=== PATIENT | male | born 1970 | race Caucasian/White ===

== ENCOUNTER 2023-07-21 21:42 | Inpatient (IN) | payer OTHER ==
[2023-07-22] MEDS ORDERED: hydrALAZINE 20 MG/ML VIAL SLOW IVP PRN (00:44)
[2023-07-22] MEDS ORDERED: Calcium Carbonate 500 MG ChewTAB PO PRN (00:45)
[2023-07-22] MEDS ORDERED: Ondansetron ODT 4 MG TAB PO PRN (00:45)
[2023-07-22] MEDS ORDERED: Acetaminophen 325 MG TAB PO PRN (00:45)
[2023-07-22 00:53] VITALS: BMI 28.0
[2023-07-22 01:42] LABS: #Basophils 0.1 thou/uL (0.0-0.2); #Eosinphils 0.1 thou/uL (0.0-0.7); #Monocytes 0.4 thou/uL (0.11-0.59); #Neutrophils 2.2 thou/uL (1.40-6.50); %Basophils 1.2 % (0.0-1.0); %Eosinophils 3.3 % (0.0-10.0); %Lymphocytes 34.3 % (21.0-51.0); Hematocrit 37.9 % (42.0-52.0); Hemoglobin 13.1 g/dL (14.0-18.0); Mean Corpuscular HGB CONC 34.6 g/dL (32.0-36.0); Mean Corpuscular Hemoglobin 28.1 pg (27.0-31.0); Mean Corpuscular Volume 81.3 fl (78.0-98.0); Mean Platelet Volume 10.4 fL (7.4-10.4); Platelet Count 149 10x3/uL (130-400); RBC Distribution Width 13.1 % (11.5-14.5); Red Blood Cell (RBC) Count 4.66 mill/uL (4.70-6.10); White Blood Cell (WBC) Count 4.3 10x3/uL (4.8-10.8)
[2023-07-22 02:11] LABS: ALT (SGPT) 64 U/L (8-55); AST (SGOT) 45 U/L (5-34); Albumin 4.3 g/dL (3.5-5.0); Alkaline Phosphatase 52 U/L (40-110); Anion Gap 15 mmol/L (10-20); BUN (Urea Nitrogen) 21 mg/dL (8.4-25.7); Bilirubin, Total 0.6 mg/dL (0.2-1.2); Calc. Creatinine Clearance 59 mL/min (70-130); Calcium 9.2 mg/dL (7.8-10.44); Carbon Dioxide 19 mmol/L (22-29); Chloride 106 mmol/L (98-107); Estimated GFR 49; Globulin 2.7 g/dL (2.4-3.5); Glucose 87 mg/dL (70-105); Potassium 3.9 mmol/L (3.5-5.1); Sodium 136 mmol/L (136-145)
[2023-07-22 02:31] LABS: Cardiac Risk 2.9 (Less than 4.5)
[2023-07-22] MEDS: Levothyroxine Sodium 100 MCG TAB PO SCH (07:05)
[2023-07-22] MEDS: Amlodipine 10 MG TAB PO SCH (08:31)
[2023-07-22] MEDS: Rivaroxaban 10 MG TAB PO SCH (08:31)
[2023-07-22] MEDS: Famotidine 20 MG TAB PO SCH ×2 (08:31→20:42)
[2023-07-22] MEDS: Aspirin 81 mg Enteric Coated Tablet PO SCH ×2 (08:31→08:36)
[2023-07-22] MEDS: Rosuvastatin 20 MG TAB PO SCH (20:42)
[2023-07-22] MEDS ORDERED: Atorvastatin Calcium 40 MG TAB PO SCH (21:00)
[2023-07-23] MEDS: Levothyroxine Sodium 100 MCG TAB PO SCH (05:10)
[2023-07-23] MEDS: Aspirin 81 mg Enteric Coated Tablet PO SCH ×2 (09:21→09:23)
[2023-07-23] MEDS: Amlodipine 10 MG TAB PO SCH (09:21)
[2023-07-23] MEDS: Famotidine 20 MG TAB PO SCH ×2 (09:21→20:08)
[2023-07-23] MEDS: Rivaroxaban 10 MG TAB PO SCH (09:21)
[2023-07-23] MEDS: Rosuvastatin 20 MG TAB PO SCH (20:08)
[2023-07-24] MEDS: Levothyroxine Sodium 100 MCG TAB PO SCH (05:57)
[2023-07-24 07:36] VITALS: BP 127/89; TEMP 97.6
[2023-07-24] MEDS: Rivaroxaban 10 MG TAB PO SCH (08:09)
[2023-07-24] MEDS: Famotidine 20 MG TAB PO SCH (08:09)
[2023-07-24] MEDS: Amlodipine 10 MG TAB PO SCH (08:09)
[2023-07-24] MEDS: Aspirin 81 mg Enteric Coated Tablet PO SCH (08:09)
== END 2023-07-24 11:52 | disposition home or self-care (01) | DRG 69 ==
LOC: 2SW 21:42 → OBSVTOIN 07-22 14:59 → 2SE 07-23 21:36
PROVIDERS: ADMIT Student in an Organized Health Care Education/Training Program; ATTEND Hospitalist
DX: G45.9 Transient cerebral ischemic attack, unspecified (principal); D68.9 Coagulation defect, unspecified; E78.5 Hyperlipidemia, unspecified; I12.9 Hypertensive chronic kidney disease with stage 1 through stage 4 chronic kidney disease, or unspecified chronic kidney disease; N18.9 Chronic kidney disease, unspecified; Z79.82 Long term (current) use of aspirin; Z79.899 Other long term (current) drug therapy; Z98.890 Other specified postprocedural states
CPT/HCPCS: 36415; 70450; 80053; 80061; 85025; G0378

== ENCOUNTER 2023-12-14 20:30 | Inpatient (IN) | payer MEDICARE, OTHER ==
[2023-12-14] MEDS ORDERED: levETIRAcetam 500 MG (5 mL) VIAL ONE (21:13)
[2023-12-14 21:16] LABS: #Basophils 0.04 10x3/uL (0.0-0.2); %Basophils 0.5 % (0.0-1.0); %Eosinophils 1.8 % (0.0-10.0); %Lymphocytes 16.1 % (21.0-51.0); %Monocytes 6.7 % (0.0-10.0); %Neutrophils 74.6 % (42.0-75.0); Hematocrit 38.2 % (42.0-52.0); Hemoglobin 12.8 g/dL (14.0-18.0); Mean Corpuscular HGB CONC 33.5 g/dL (32.0-36.0); Mean Corpuscular Hemoglobin 27.6 pg (27.0-31.0); Mean Corpuscular Volume 82.5 fL (78.0-98.0); Mean Platelet Volume 10.2 fL (7.4-10.4); Platelet Count 187 10x3/uL (130-400); RBC Distribution Width 13.5 % (11.5-14.5); Red Blood Cell (RBC) Count 4.63 mill/uL (4.70-6.10)
[2023-12-14] MEDS ORDERED: niCARdipine 25 MG/10 ML SDV ONE ×2 (21:23→23:09)
[2023-12-14 21:30] LABS: INR-International Normal Ratio 1.2; PTT 33.4 sec (22.9-36.1); Prothrombin Time 15.1 sec (12.0-14.7)
[2023-12-14 21:44] LABS: ALT (SGPT) 20 U/L (8-55); AST (SGOT) 28 U/L (5-34); Albumin 4.7 g/dL (3.5-5.0); Alkaline Phosphatase 55 U/L (40-110); Anion Gap 15 mmol/L (10-20); BUN (Urea Nitrogen) 25 mg/dL (8.4-25.7); Bilirubin, Total 0.6 mg/dL (0.2-1.2); Calc. Creatinine Clearance 0 mL/min (70-130); Calcium 9.4 mg/dL (7.8-10.44); Carbon Dioxide 20 mmol/L (22-29); Chloride 107 mmol/L (98-107); Estimated GFR 51; Globulin 3.2 g/dL (2.4-3.5); Glucose 127 mg/dL (70-105); Potassium 3.8 mmol/L (3.5-5.1); Protein, Total 7.9 g/dL (6.0-8.3); Sodium 138 mmol/L (136-145)
[2023-12-14] MEDS ORDERED: Lidocaine 1% PF 5 ML VIAL ONE (21:54)
[2023-12-14] MEDS ORDERED: Dextrose 50% Abboject 50 ML SYRINGE SLOW IVP PRN (22:07)
[2023-12-14] MEDS ORDERED: Dextrose 5% in Water 1,000 ML IV PRN (22:07)
[2023-12-14] MEDS ORDERED: Ondansetron PF 4 MG/2 ML Vial IVP PRN (22:07)
[2023-12-14] MEDS ORDERED: Glucagon 1 MG/ML KIT IM PRN (22:07)
[2023-12-14] MEDS ORDERED: Insulin Regular, Human 100 UNIT/ML 10 ML VIAL SC PRN (22:07)
[2023-12-14] MEDS ORDERED: FENTANYL 500 MCG/10 ML VIAL 2,000 MCG in Sodium Chloride 0.9% 60 ML IV PRN (22:17)
[2023-12-14] MEDS ORDERED: PROPOFOL 200 MG/20 ML VIAL ONE (22:19)
[2023-12-14] MEDS ORDERED: Rocuronium Bromide 10 MG/ML (10ML VIAL) ONE (22:19)
[2023-12-14] MEDS ORDERED: Propofol 1,000 MG/100 ML VIAL IV ONE (22:24)
[2023-12-14 22:53] LABS: Actual Bicarbonate (HCO3a) 23.4 mEq/L (22-28); Base Excess (BEa) -1.9 mEq/L (-2.0 to +3.0); Calcium, Ionized (arterial) 1.13 mmol/L (1.12-1.30); Hematocrit-ABG 37 % (42.0-52.0); Hemoglobin (Hb) 12.6 g/dL (14.0-18.0); O2 Tension (PaO2), arterial 175.2 mmHg (80.0-100.0); Potassium - ABG Lab 3.77 mmol/L (3.70-5.30); pH, Arterial 7.364 (7.35-7.45)
[2023-12-14 22:54] LABS: Puncture Site RA
[2023-12-14] MEDS ORDERED: Electrolyte Replacement Protocol 1 EACH IVPB SCH (23:05)
[2023-12-14] MEDS ORDERED: Ventilator Sedation Protocol 1 EACH FS SCH ×2 (23:15)
[2023-12-14] MEDS ORDERED: Fentanyl BOLUS 250 ML IVPB PRN (23:15)
[2023-12-14] MEDS ORDERED: Propofol BOLUS 1,000 MG/100 ML VIAL IV PRN (23:15)
[2023-12-14] MEDS ORDERED: Labetalol HCl 100 MG/20 ML VIAL SLOW IVP PRN (23:52)
[2023-12-14] MEDS ORDERED: Glycopyrrolate 0.2 MG/ML 5 ML SYRINGE SLOW IVP PRN (23:54)
[2023-12-15] MEDS: Lorazepam 2 MG/ML VIAL SLOW IVP PRN (00:06)
[2023-12-15] MEDS: Sodium Chloride 0.9% 1,000 ML IV SCH (00:09)
[2023-12-15] MEDS: Morphine 2 MG/ML VIAL SLOW IVP PRN (00:15)
[2023-12-15] MEDS: Scopolamine 1 mg/72 hour Patch TD SCH (03:18)
[2023-12-15] MEDS: Propofol 1,000 MG/100 ML VIAL IV PRN (03:23)
[2023-12-15] MEDS: Ipratropium/Albuterol 3 ML NEB NEB SCH (06:26)
[2023-12-15] MEDS: niCARdipine 25 MG in Sodium Chloride 0.9% 250 ML 250 ML IVPB SCH (06:30)
[2023-12-15 06:45] LABS: Actual Bicarbonate (HCO3a) 19.8 mEq/L (22-28); Base Excess (BEa) -1.2 mEq/L (-2.0 to +3.0); CO2 Tension 23.6 mmHg (35.0-45.0); Calcium, Ionized (arterial) 1.07 mmol/L (1.12-1.30); Carboxyhemoglobin (COHb) 0.3 gm% (0.0-3.0); Hematocrit-ABG 36 % (42.0-52.0); Hemoglobin (Hb) 12.4 g/dL (14.0-18.0); O2 Tension (PaO2), arterial 168.2 mmHg (80.0-100.0); Potassium - ABG Lab 3.67 mmol/L (3.70-5.30); pH, Arterial 7.541 (7.35-7.45)
[2023-12-15 06:46] LABS: Puncture Site RRA
[2023-12-15 06:51] LABS: #Basophils 0.03 10x3/uL (0.0-0.2); #Eosinphils Less than 0.03 10x3/uL (0.0-0.7); %Basophils 0.3 % (0.0-1.0); %Eosinophils 0.2 % (0.0-10.0); %Lymphocytes 5.4 % (21.0-51.0); %Monocytes 6.2 % (0.0-10.0); %Neutrophils 87.6 % (42.0-75.0); Hematocrit 36.1 % (42.0-52.0); Hemoglobin 12.3 g/dL (14.0-18.0); Mean Corpuscular HGB CONC 34.1 g/dL (32.0-36.0); Mean Corpuscular Hemoglobin 28.1 pg (27.0-31.0); Mean Corpuscular Volume 82.4 fL (78.0-98.0); Mean Platelet Volume 10.1 fL (7.4-10.4); Platelet Count 180 10x3/uL (130-400); RBC Distribution Width 13.3 % (11.5-14.5); Red Blood Cell (RBC) Count 4.38 mill/uL (4.70-6.10)
[2023-12-15 07:04] LABS: INR-International Normal Ratio 1.1; Prothrombin Time 14.5 sec (12.0-14.7)
[2023-12-15 07:05] LABS: PTT 32.5 sec (22.9-36.1)
[2023-12-15 07:07] LABS: Anion Gap 14 mmol/L (10-20); BUN (Urea Nitrogen) 20 mg/dL (8.4-25.7); Calc. Creatinine Clearance 65 mL/min (70-130); Carbon Dioxide 19 mmol/L (22-29); Chloride 108 mmol/L (98-107); Estimated GFR 58; Glucose 115 mg/dL (70-105); Potassium 3.7 mmol/L (3.5-5.1); Sodium 137 mmol/L (136-145)
[2023-12-15] MEDS: Levothyroxine Sodium 75 MCG TAB PER TUBE SCH (09:32)
[2023-12-15] MEDS: Famotidine/PF 20 mg/2ml Vial SLOW IVP SCH (09:32)
[2023-12-15] MEDS: Amlodipine 10 MG TAB PER TUBE SCH (09:32)
[2023-12-15] MEDS: levETIRAcetam 500 MG (5 mL) VIAL SLOW IVP SCH (10:34)
[2023-12-16] MEDS: Levothyroxine Sodium 75 MCG TAB PER TUBE SCH (05:39)
[2023-12-16] MEDS: hydrALAZINE 20 MG/ML VIAL SLOW IVP PRN (05:42)
[2023-12-16 08:02] LABS: Base Excess (BEa) -3.1 mEq/L (-2.0 to +3.0); CO2 Tension 26.1 mmHg (35.0-45.0); Calcium, Ionized (arterial) 1.13 mmol/L (1.12-1.30); Carboxyhemoglobin (COHb) 0.6 gm% (0.0-3.0); Hematocrit-ABG 37 % (42.0-52.0); Hemoglobin (Hb) 12.7 g/dL (14.0-18.0); Potassium - ABG Lab 3.77 mmol/L (3.70-5.30)
[2023-12-16 08:03] LABS: Hematocrit 37.4 % (42.0-52.0); Hemoglobin 12.3 g/dL (14.0-18.0); Mean Corpuscular HGB CONC 32.9 g/dL (32.0-36.0); Mean Platelet Volume 10.4 fL (7.4-10.4); Platelet Count 170 10x3/uL (130-400); RBC Distribution Width 13.8 % (11.5-14.5)
[2023-12-16 08:04] LABS: ALV-art Gradient 192.575 mmHg (0-20); Puncture Site RRA
[2023-12-16 08:15] LABS: Anion Gap 14 mmol/L (10-20); BUN (Urea Nitrogen) 17 mg/dL (8.4-25.7); Calc. Creatinine Clearance 73 mL/min (70-130); Calcium 8.8 mg/dL (7.8-10.44); Carbon Dioxide 16 mmol/L (22-29); Chloride 107 mmol/L (98-107); Estimated GFR 67; Glucose 110 mg/dL (70-105); Sodium 133 mmol/L (136-145)
[2023-12-16 09:28] LABS: Band 9 % (5-11); Burr Cells SLIGHT = 2-5 cells HPF (0-1); Elliptocytes SLIGHT = 2-5 cells HPF (0-1); Lymphocytes 2 % (21-51); Neutrophil 88 % (42-75); Platelet Adequacy Comment Platelets Normal; Reactive Lymphocytes 1 % (0-10); Schistocytes SLIGHT = 2-5 cells HPF (0-1)
[2023-12-16] MEDS: Acetaminophen 650 MG Suppository PR PRN (10:27)
[2023-12-16] MEDS: Sodium Chloride 0.9% 1,000 ML IV SCH (12:33)
[2023-12-16] MEDS: Acetaminophen 325 MG TAB PO PRN (19:11)
[2023-12-17 10:40] LABS: Anion Gap 18 mmol/L (10-20); BUN (Urea Nitrogen) 22 mg/dL (8.4-25.7); Calc. Creatinine Clearance 65 mL/min (70-130); Calcium 8.9 mg/dL (7.8-10.44); Carbon Dioxide 13 mmol/L (22-29); Chloride 114 mmol/L (98-107); Estimated GFR 67; Glucose 124 mg/dL (70-105); Potassium 4.5 mmol/L (3.5-5.1); Sodium 140 mmol/L (136-145)
[2023-12-17 13:00] LABS: Hematocrit 35.7 % (42.0-52.0); Mean Corpuscular HGB CONC 33.6 g/dL (32.0-36.0); Mean Corpuscular Hemoglobin 27.6 pg (27.0-31.0); Mean Corpuscular Volume 82.1 fL (78.0-98.0); Mean Platelet Volume 11.5 fL (7.4-10.4); Platelet Count 127 10x3/uL (130-400); Red Blood Cell (RBC) Count 4.35 mill/uL (4.70-6.10)
[2023-12-17] MEDS ORDERED: Ipratropium/Albuterol 3 ML NEB NEB PRN (13:18)
[2023-12-17 13:26] LABS: Band 7 % (5-11); Burr Cells SLIGHT = 2-5 cells HPF (0-1); Lymphocytes 3 % (21-51); Macrocytosis SLIGHT = 6-15 cells HPF (0-5); Monocytes 7 % (0-10); Neutrophil 82 % (42-75); Ovalocytes SLIGHT = 2-5 cells HPF (0-1); Platelet Adequacy Comment Platelets Decreased; Poikilocytosis SLIGHT = 6-15 cells HPF (0-5); Polychromasia SLIGHT = 2-3 cells HPF (0-2); Vacuoles SLIGHT
[2023-12-17 13:31] LABS: #Basophils Less than 0.03 10x3/uL (0.0-0.2); #Eosinphils Less than 0.03 10x3/uL (0.0-0.7); %Basophils 0.2 % (0.0-1.0); %Eosinophils 0.2 % (0.0-10.0); %Lymphocytes 4.7 % (21.0-51.0); %Monocytes 12.8 % (0.0-10.0); %Neutrophils 81.4 % (42.0-75.0)
[2023-12-17 20:06] LABS: Plasma Cells 0 % (0-0); Total Cell Count 100
[2023-12-18 08:03] LABS: #Basophils 0.04 10x3/uL (0.0-0.2); %Basophils 0.4 % (0.0-1.0); %Eosinophils 2.3 % (0.0-10.0); %Monocytes 10.7 % (0.0-10.0); Hemoglobin 9.4 g/dL (14.0-18.0); Mean Corpuscular HGB CONC 33.6 g/dL (32.0-36.0); Mean Corpuscular Hemoglobin 27.3 pg (27.0-31.0); Mean Corpuscular Volume 81.4 fL (78.0-98.0); Platelet Count 175 10x3/uL (130-400); RBC Distribution Width 14.1 % (11.5-14.5); Red Blood Cell (RBC) Count 3.44 mill/uL (4.70-6.10)
[2023-12-18 08:08] LABS: Anion Gap 14 mmol/L (10-20); BUN (Urea Nitrogen) 23 mg/dL (8.4-25.7); Calc. Creatinine Clearance 84 mL/min (70-130); Calcium 8.8 mg/dL (7.8-10.44); Carbon Dioxide 17 mmol/L (22-29); Chloride 111 mmol/L (98-107); Estimated GFR 91; Glucose 98 mg/dL (70-105); Potassium 4.1 mmol/L (3.5-5.1); Sodium 138 mmol/L (136-145)
[2023-12-18] MEDS ORDERED: Bisacodyl 5 MG TAB PO PRN (09:48)
[2023-12-18] MEDS: Sodium Chloride 0.9% 1,000 ML IV SCH (09:55)
[2023-12-18] MEDS: Senokot S 8.6-50 MG TAB PO SCH ×2 (11:53→21:46)
[2023-12-18] MEDS: Polyethylene Glycol 3350 17 GM Packet PO SCH (11:54)
[2023-12-19 04:47] LABS: #Basophils 0.05 10x3/uL (0.0-0.2); %Basophils 0.5 % (0.0-1.0); %Eosinophils 2.2 % (0.0-10.0); %Lymphocytes 6.8 % (21.0-51.0); %Monocytes 11.3 % (0.0-10.0); %Neutrophils 78.3 % (42.0-75.0); Hematocrit 33.6 % (42.0-52.0); Hemoglobin 11.4 g/dL (14.0-18.0); Mean Corpuscular HGB CONC 33.9 g/dL (32.0-36.0); Mean Corpuscular Hemoglobin 27.5 pg (27.0-31.0); Mean Platelet Volume 10.5 fL (7.4-10.4); Platelet Count 217 10x3/uL (130-400); RBC Distribution Width 14.1 % (11.5-14.5); Red Blood Cell (RBC) Count 4.15 mill/uL (4.70-6.10)
[2023-12-19 05:18] VITALS: BMI 21.8
[2023-12-19 05:27] LABS: Anion Gap 14 mmol/L (10-20); BUN (Urea Nitrogen) 25 mg/dL (8.4-25.7); Calc. Creatinine Clearance 82 mL/min (70-130); Calcium 9.3 mg/dL (7.8-10.44); Carbon Dioxide 21 mmol/L (22-29); Chloride 107 mmol/L (98-107); Estimated GFR 88; Glucose 95 mg/dL (70-105); Potassium 4.1 mmol/L (3.5-5.1); Sodium 138 mmol/L (136-145)
[2023-12-19] MEDS: Polyethylene Glycol 3350 17 GM Packet PO SCH (08:23)
[2023-12-20 04:23] LABS: #Basophils 0.09 10x3/uL (0.0-0.2); %Basophils 0.9 % (0.0-1.0); %Eosinophils 1.7 % (0.0-10.0); Hematocrit 33.1 % (42.0-52.0); Mean Corpuscular HGB CONC 33.2 g/dL (32.0-36.0); Mean Corpuscular Volume 81.3 fL (78.0-98.0); Mean Platelet Volume 10.4 fL (7.4-10.4); Platelet Count 233 10x3/uL (130-400); RBC Distribution Width 14.1 % (11.5-14.5); Red Blood Cell (RBC) Count 4.07 mill/uL (4.70-6.10)
[2023-12-20 04:44] LABS: Anion Gap 13 mmol/L (10-20); BUN (Urea Nitrogen) 23 mg/dL (8.4-25.7); Calc. Creatinine Clearance 80 mL/min (70-130); Carbon Dioxide 20 mmol/L (22-29); Chloride 108 mmol/L (98-107); Estimated GFR 81; Glucose 109 mg/dL (70-105); Sodium 137 mmol/L (136-145)
[2023-12-21 05:59] LABS: Hematocrit 32.6 % (42.0-52.0); Hemoglobin 11.1 g/dL (14.0-18.0); Mean Corpuscular Hemoglobin 27.5 pg (27.0-31.0); Mean Corpuscular Volume 80.7 fL (78.0-98.0); Mean Platelet Volume 10.3 fL (7.4-10.4); Platelet Count 267 10x3/uL (130-400); RBC Distribution Width 14.3 % (11.5-14.5); Red Blood Cell (RBC) Count 4.04 mill/uL (4.70-6.10)
[2023-12-21 06:18] LABS: Anion Gap 13 mmol/L (10-20); BUN (Urea Nitrogen) 20 mg/dL (8.4-25.7); Calc. Creatinine Clearance 81 mL/min (70-130); Calcium 9.2 mg/dL (7.8-10.44); Carbon Dioxide 24 mmol/L (22-29); Chloride 104 mmol/L (98-107); Estimated GFR 75; Glucose 97 mg/dL (70-105); Potassium 4.1 mmol/L (3.5-5.1); Sodium 137 mmol/L (136-145)
[2023-12-21 06:52] LABS: Band 5 % (5-11); Burr Cells SLIGHT = 2-5 cells HPF (0-1); Elliptocytes SLIGHT = 2-5 cells HPF (0-1); Eosinophils 5 % (0-10); Lymphocytes 3 % (21-51); Monocytes 15 % (0-10); Myelocyte 1 % (0-0); Neutrophil 72 % (42-75); Platelet Adequacy Comment Platelets Normal; Smudge Cells 13.7 %
[2023-12-21 06:57] LABS: Actual Bicarbonate (HCO3a) 25.1 mEq/L (22-28); Base Excess (BEa) 1.2 mEq/L (-2.0 to +3.0); CO2 Tension 37.6 mmHg (35.0-45.0); Calcium, Ionized (arterial) 1.16 mmol/L (1.12-1.30); Carboxyhemoglobin (COHb) 0.4 gm% (0.0-3.0); Hematocrit-ABG 34 % (42.0-52.0); Hemoglobin (Hb) 11.4 g/dL (14.0-18.0); O2 Tension (PaO2), arterial 70.8 mmHg (80.0-100.0); Potassium - ABG Lab 4.17 mmol/L (3.70-5.30); pH, Arterial 7.443 (7.35-7.45)
[2023-12-21 06:58] LABS: Puncture Site RRA
[2023-12-21] MEDS ORDERED: EPINEPHrine 1 MG/ML VIAL ONE (08:17)
[2023-12-21] MEDS ORDERED: Lidocaine 2% PF 5 ML VIAL ONE (08:17)
[2023-12-21] MEDS ORDERED: Bupivacaine PF 0.5% 30 ML VIAL ONE (08:17)
[2023-12-21] MEDS ORDERED: Rocuronium Bromide 10 MG/ML (10ML VIAL) ONE (08:18)
[2023-12-21] MEDS ORDERED: Midazolam HCl 2 mg/2 ml Vial ONE (08:18)
[2023-12-21] MEDS ORDERED: PROPOFOL 20 ML ONE (08:18)
[2023-12-21] MEDS ORDERED: PHENYLEPHRINE-NS 100 MCG/ML 10 ML SYRINGE ONE (08:18)
[2023-12-21] MEDS ORDERED: fentaNYL PF 100 MCG/2 ML SYRINGE ONE (08:21)
[2023-12-21] MEDS ORDERED: ePHEDrine Sulfate 50 MG/10 ML VIAL ONE (08:22)
[2023-12-21] MEDS ORDERED: cefOXitin 2 GM VIAL ONE (10:03)
[2023-12-21] MEDS ORDERED: Ondansetron PF 4 MG/2 ML Vial ONE (10:23)
[2023-12-21] MEDS ORDERED: Dexamethasone 4 mg/ml Vial ONE (10:23)
[2023-12-21] MEDS ORDERED: Vecuronium 10 MG VIAL ONE (10:52)
[2023-12-21] MEDS ORDERED: fentaNYL 50 mcg/mL 1 mL Vial ONE (12:01)
[2023-12-21] MEDS: D5W-AA 4.25% with LYTES 1,000 ML IV SCH (17:00)
[2023-12-21] MEDS: Famotidine 20 MG TAB PO SCH (21:43)
[2023-12-22 07:53] LABS: Anion Gap 16 mmol/L (10-20); BUN (Urea Nitrogen) 27 mg/dL (8.4-25.7); Calc. Creatinine Clearance 68 mL/min (70-130); Calcium 9.3 mg/dL (7.8-10.44); Carbon Dioxide 17 mmol/L (22-29); Chloride 107 mmol/L (98-107); Estimated GFR 75; Glucose 111 mg/dL (70-105); Potassium 4.8 mmol/L (3.5-5.1); Sodium 135 mmol/L (136-145)
[2023-12-22 10:25] LABS: Hematocrit 36.7 % (42.0-52.0); Hemoglobin 12.2 g/dL (14.0-18.0); Mean Corpuscular HGB CONC 33.2 g/dL (32.0-36.0); Mean Corpuscular Hemoglobin 26.7 pg (27.0-31.0); Mean Corpuscular Volume 80.3 fL (78.0-98.0); Mean Platelet Volume 10.2 fL (7.4-10.4); Platelet Count 307 10x3/uL (130-400); RBC Distribution Width 14.5 % (11.5-14.5); Red Blood Cell (RBC) Count 4.57 mill/uL (4.70-6.10)
[2023-12-22 10:59] LABS: Anisocytosis SLIGHT = 6-15 cells HPF (0-5); Band 2 % (5-11); Burr Cells SLIGHT = 2-5 cells HPF (0-1); Elliptocytes SLIGHT = 2-5 cells HPF (0-1); Lymphocytes 7 % (21-51); Monocytes 16 % (0-10); Neutrophil 75 % (42-75); Ovalocytes SLIGHT = 2-5 cells HPF (0-1); Platelet Adequacy Comment Platelets Normal; Poikilocytosis SLIGHT = 6-15 cells HPF (0-5); Polychromasia SLIGHT = 2-3 cells HPF (0-2)
[2023-12-23 05:55] LABS: Hematocrit 36.8 % (42.0-52.0); Hemoglobin 12.2 g/dL (14.0-18.0); Mean Corpuscular HGB CONC 33.2 g/dL (32.0-36.0); Mean Corpuscular Hemoglobin 27.2 pg (27.0-31.0); Mean Corpuscular Volume 82.1 fL (78.0-98.0); Mean Platelet Volume 9.9 fL (7.4-10.4); Platelet Count 316 10x3/uL (130-400); RBC Distribution Width 14.6 % (11.5-14.5); Red Blood Cell (RBC) Count 4.48 mill/uL (4.70-6.10)
[2023-12-23 06:03] LABS: Anion Gap 17 mmol/L (10-20); BUN (Urea Nitrogen) 28 mg/dL (8.4-25.7); Calc. Creatinine Clearance 76 mL/min (70-130); Calcium 9.8 mg/dL (7.8-10.44); Carbon Dioxide 26 mmol/L (22-29); Chloride 100 mmol/L (98-107); Estimated GFR 74; Glucose 111 mg/dL (70-105); Potassium 4.9 mmol/L (3.5-5.1); Sodium 138 mmol/L (136-145)
[2023-12-23 06:27] LABS: Band 12 % (5-11); Eosinophils 2 % (0-10); Hypochromia SLIGHT = 6-15 cells HPF (0-5); Large Platelets 0.5 % (0-5); Lymphocytes 8 % (21-51); Metamyelocyte 1 % (0-0); Monocytes 5 % (0-10); Neutrophil 70 % (42-75); Nucleated RBC (Manual Ct) 1 % (0); Platelet Adequacy Comment Platelets Normal; Polychromasia SLIGHT = 2-3 cells HPF (0-2); Reactive Lymphocytes 2 % (0-10)
[2023-12-23 07:56] VITALS: BP 119/78
[2023-12-23 12:50] VITALS: BMI 23.3
[2023-12-23] MEDS: Metoclopramide HCl 10 MG (2 mL) VIAL IVP SCH (14:11)
[2023-12-23 20:56] VITALS: TEMP 98.3
== END 2023-12-23 21:58 | DRG 3 ==
LOC: ERS 20:30 → CCU 22:13
PROVIDERS: ADMIT Family Medicine; ATTEND Internal Medicine
PROC: 5A1955Z Respiratory Ventilation, Greater than 96 Consecutive Hours (ICD-10-PCS; 2023-12-14)
PROC: 0BH17EZ Insertion of Endotracheal Airway into Trachea, Via Natural or Artificial Opening (ICD-10-PCS; 2023-12-14)
PROC: 4A00X4Z Measurement of Central Nervous Electrical Activity, External Approach (ICD-10-PCS; principal; 2023-12-15)
PROC: 0DNU0ZZ Release Omentum, Open Approach (ICD-10-PCS; 2023-12-21)
PROC: 0B110F4 Bypass Trachea to Cutaneous with Tracheostomy Device, Open Approach (ICD-10-PCS; 2023-12-21)
PROC: 0DNU4ZZ Release Omentum, Percutaneous Endoscopic Approach (ICD-10-PCS; 2023-12-21)
PROC: 0DQ80ZZ Repair Small Intestine, Open Approach (ICD-10-PCS; 2023-12-21)
PROC: 0DH60UZ Insertion of Feeding Device into Stomach, Open Approach (ICD-10-PCS; 2023-12-21)
DX: I62.9 Nontraumatic intracranial hemorrhage, unspecified (principal); G92.8 Other toxic encephalopathy; J96.01 Acute respiratory failure with hypoxia; I69.954 Hemiplegia and hemiparesis following unspecified cerebrovascular disease affecting left non-dominant side; E87.1 Hypo-osmolality and hyponatremia; D68.59 Other primary thrombophilia; E78.5 Hyperlipidemia, unspecified; I12.9 Hypertensive chronic kidney disease with stage 1 through stage 4 chronic kidney disease, or unspecified chronic kidney disease; F07.81 Postconcussional syndrome; W19.XXXA Unspecified fall, initial encounter; R50.9 Fever, unspecified; N18.9 Chronic kidney disease, unspecified; S41.112A Laceration without foreign body of left upper arm, initial encounter; Z98.2 Presence of cerebrospinal fluid drainage device; Z79.01 Long term (current) use of anticoagulants; Z79.890 Hormone replacement therapy; Z79.82 Long term (current) use of aspirin
CPT/HCPCS: 36415; 36416; 36600; 70450; 71045; 80048; 82805; 85025; 85610; 85730; 86850; 86900; 86901; 87040; 93005; 93306; 93880; 94002; 94003; 94640; 95700; 95711; 95819; A4649; B4087; G0390; J0171; J0360; J0665; J0694; J1100; J1953; J2001; J2060; J2250; J2272; J2405; J2704; J2765; J3010; J7050; J7620; S0028